=== PATIENT | male | born 1960 | race Caucasian/White ===

== ENCOUNTER → 2020-05-03 | Outpatient (CLI) | payer OTHER | END | disposition home or self-care (01) | LOC: LAB SHORT 12:56 → LAB 12:56 | DX: C44.41 Basal cell carcinoma of skin of scalp and neck (principal); D22.71 Melanocytic nevi of right lower limb, including hip | CPT/HCPCS: 88305 ==

== ENCOUNTER → 2020-05-30 | Outpatient (CLI) | payer OTHER | END | disposition home or self-care (01) | LOC: LAB 12:19 → LAB SHORT 12:19 | DX: C44.41 Basal cell carcinoma of skin of scalp and neck (principal) | CPT/HCPCS: 88305 ==

== ENCOUNTER 2023-01-14 08:22 | Day surgery (SDC) | payer BC ==
[2023-01-14] VITALS (16 sets, daily range): BP systolic 89–125; BP diastolic 58–93
[~2023-01-14] VITALS: Ht 175 cm; Wt 94.9 kg
[~2023-01-14 08:22] MED LIST: CLON.5 PO; DAILY-VITE1 EAC1 PO; IRON18 MG PO; OMEP20ER PO; TELM40 PO
[2023-01-14] MEDS ORDERED: ASPI81CH PO (09:29)
[2023-01-14] MEDS ORDERED: TADALAFIL5 M1 (09:29)
[2023-01-14] MEDS ORDERED: THERA-D2000 UNIT PO (09:33)
[2023-01-14] MEDS ORDERED: CALCIUM 600 +1 EA11 PO (09:34)
[2023-01-14] MEDS ORDERED: ZINC15 PO (09:34)
[2023-01-14] MEDS ORDERED: ZYRTEC10 M2 PO (09:34)
--- NOTE | 2023-01-14 09:35 | NUR ---
Ambulatory in Day Surgery. History, Chart, Medications and Allergies reviewed before start of procedure. Pre-Op teaching done. Pt verbalizes understanding. Patient confirms NPO status and agrees with scheduled surgery. Patient states colon prep results light yellow, small amounts of sediment. Lungs clear T/O to Auscultation. Patient States Post-Procedure ride home has been arranged.
--- NOTE | 2023-01-14 09:45 | NUR ---
01/14/23 0945 Woodrow Ramos HISTORY, CHART, MEDICATIONS AND ALLERGIES REVIEWED BEFORE START OF PROCEDURE. PATIENT CONFIRMS NPO STATUS AND AGREES WITH SCHEDULED PROCEDURE. 3-LEAD EKG REVIEWED WITH PHYSICIAN PRIOR TO START OF PROCEDURE. MONITOR INTACT WITH CONTINUOUS PULSE OXIMETRY,CAPNOGRAPHY, 3-LEAD EKG, INTERMITTENT BP. SUPPLEMENTAL O2 TO BE TITRATED THROUGHOUT PROCEDURE TO MAINTAIN O2 SATURATION ABOVE 90%. PATIENT DETERMINED TO BE ASA APPROPRIATE FOR PROPOFOL SEDATION PRIOR TO START OF PROCEDURE BY
--- NOTE | 2023-01-14 10:28 | NUR ---
REPORT RECEIVED FROM MARCELO HUNT RN. VSS. PT ABLE TO REPOSITION SELF IN BED. PT REQUESTING PO FOOD AND FLUIDS AND TOLERATING THEM WELL. PT DENIES PAIN, NAUSEA OR OTHER DISCOMFORTS. AT BEDSIDE.
--- NOTE | 2023-01-14 10:50 | NUR ---
Patient up to Ambulate independently. Gait steady. VSS AND CONSISTENT WITH PT BASELINE. PT DENIES PAIN OR OTHER DISCOMFORTS. Discharge instructions reviewed with patient. Patient verbalizes understanding. Copy given to patient to take home. Patient States Post-Procedure ride home has been arranged. Discharged via AMBULATION WITH RN to private car for ride home. PT BELONGINGS RETURNED TO PT.
== END 2023-01-14 10:58 | disposition home or self-care (01) ==
LOC: ORSCMMR 08:22 → ORD 09:30 → ORSCMMR 10:58
PROVIDERS: Internal Medicine Gastroenterology
PROC: 0DJD8ZZ Inspection of Lower Intestinal Tract, Via Natural or Artificial Opening Endoscopic (ICD-10-PCS; principal; 2023-01-14 09:30)
DX: Z12.11 Encounter for screening for malignant neoplasm of colon (principal); Z98.84 Bariatric surgery status; I10 Essential (primary) hypertension; Z79.899 Other long term (current) drug therapy
CPT/HCPCS: J2704; J7120

== ENCOUNTER 2023-05-30 07:34 | Emergency (ER) | payer BC ==
[~2023-05-30] VITALS: Ht 175.3 cm; Wt 95.2 kg
[~2023-05-30 07:34] MED LIST changes: +ASPI81CH PO; +CALCIUM 600 +1 EA11 PO; +TADALAFIL5 M1; +THERA-D2000 UNIT PO; +ZINC15 PO; +ZYRTEC10 M2 PO
[2023-05-30 07:47] VITALS: BP 153/96
== END 2023-05-30 08:57 | disposition home or self-care (01) ==
LOC: ER 07:34
DX: H93.11 Tinnitus, right ear (principal); I10 Essential (primary) hypertension; G25.81 Restless legs syndrome; Z79.899 Other long term (current) drug therapy; Z88.5 Allergy status to narcotic agent; Z91.040 Latex allergy status
CPT/HCPCS: 99282

== ENCOUNTER → 2023-08-05 | Outpatient (CLI) | payer BC | END | disposition home or self-care (01) | LOC: LAB SHORT 12:18 | DX: C44.41 Basal cell carcinoma of skin of scalp and neck (principal) | CPT/HCPCS: 88305 ==